=== PATIENT | female | born 1980 | race Caucasian/White ===

== ENCOUNTER 2018-04-28 15:46 | Inpatient (IN) | payer OTHER ==
[2018-04-28 16:20] VITALS: BMI 28.8
[2018-04-28] MEDS ORDERED: Lactated Ringer's 1,000 ML IV ONE (16:20)
[2018-04-28] MEDS ORDERED: Oxytocin 30 UNIT 30 UNITS/500 ML BAG IV ONE (16:22)
[2018-04-28] MEDS ORDERED: OXYTOCIN/0.9 % NS 20 UNIT/1,000 ML BAG IV SCH (16:30)
[2018-04-28] MEDS: Lactated Ringer's 1,000 ML IV SCH (17:35)
[2018-04-28 17:56] LABS: BASO # 0.1 K/uL (0.0-0.2); BASO % 0.9 % (0.0-2.0); EOS % 0.2 % (0.0-4.0); LYMPH # 1.6 K/uL (1.0-4.3); LYMPH % 17.2 % (20.0-40.0); MEAN CELL VOLUME 93.2 fl (81.0-99.0); MEAN CORPUSCULAR HGB CONC 33.3 g/dL (33.0-37.0); MEAN PLATELET VOLUME 10.6 fl (7.2-11.7); MONO % 11.1 % (0.0-10.0); NEUT # 6.5 K/uL (1.8-7.0); NEUT % 70.6 % (50.0-75.0); NRBC % 0.2 % (0.0-0.0); RBC 3.87 Mil/uL (3.80-5.20); RED CELL DISTRIBUTION WIDTH 14.9 % (11.5-14.5); WHITE BLOOD COUNT 9.2 K/uL (4.8-10.8)
--- NOTE | 2018-04-29 03:24 | OBHP ---
Datetime: 04/28/2018 22:43 IP Adm Impression: Term, intrauterine ; No Active Labor IP Admit Plan: Admit to unit Admit Comment, IP Provider: HPI: Theodore is a 37 year old at 40.2 sent to L_D by Dr. Lopez for IOL secondary to AMA. Denies any current contractions, LOF or vaginal bleeding. ROS: as above, otherwise negative History G1: SAB G2: current PMH Denies PSH Denies Medications PNV Allergies NKDA OBJECTIVE See exam labs: B+, Hep B neg, HIV/RPR neg, Rubella nonimmune, GBS neg Assessment/Plan: Admit to L_D for IOL - Will place a cervidil per Dr. Lopez's recommendation Sharlene Mccullough MD OB Fellow The patient was seen with the fellow I agree with the note Abdomen - PN: Normal Lungs - PN: Normal Heart - PN: Normal Thyroid - PN: Normal HEENT - PN: Normal General - PN: Normal FHR - Baseline A Provider: 140 Membranes, Provider: Intact Contraction Comments Provider: Sporadic Gestation - Est Wks by US: 40.2 Vital Signs Provider: Reviewed; Within Normal Limits NICHD Variability Prov Fetus A: Moderate 6-25bpm NICHD Accel Fetus A IP Provider: 15X15 FHR Category Provider Fetus A: Category I NICHD Decel Fetus A IP Provider: None Dilatation, Provider: 2 Effacement, Provider: 20 Station, Provider: -3
[2018-04-29] MEDS ORDERED: Fentanyl/Bupivacaine HCl 250 ML EPI ONE (04:16)
[2018-04-29] MEDS ORDERED: Oxytocin 30 UNIT 30 UNITS/500 ML BAG IV ONE (09:07)
[2018-04-29] MEDS: Lactated Ringer's 1,000 ML IV SCH (09:38)
[2018-04-29] MEDS ORDERED: Lidocaine 1% Inj (20ml) ONE (11:56)
[2018-04-29] MEDS ORDERED: OXYTOCIN/0.9 % NS 20 UNIT/1,000 ML BAG IV ONE (11:56)
--- NOTE | 2018-04-29 12:14 | OBPN ---
Datetime: 04/29/2018 12:09 IP Procedures: Artificial ROM; Sterile Vag Exam IP Progress Plan: Continue present management; Augmentation Contraction Comments Provider: q2-3min FHR - Baseline A Provider: 130s-140s IP Progress Note Comment: Pt without complaints AROM clear fluid FHT category I Discussed plan with patient and all patient questions answered. Vital Signs Provider: Reviewed; Within Normal Limits NICHD Accel Fetus A IP Provider: 15X15 FHR Category Provider Fetus A: Category I NICHD Variability Prov Fetus A: Moderate 6-25bpm Dilatation, Provider: 2 Effacement, Provider: 90 Station, Provider: -1 NICHD Decel Fetus A IP Provider: None Datetime: 04/28/2018 22:43 Membranes, Provider: Intact Gestation - Est Wks by US: 40.2
--- NOTE | 2018-04-29 18:14 | OBADHP ---
Datetime: 04/29/2018 12:09 FHR - Baseline A Provider: 130s-140s Contraction Comments Provider: q2-3min Vital Signs Provider: Reviewed; Within Normal Limits NICHD Variability Prov Fetus A: Moderate 6-25bpm NICHD Accel Fetus A IP Provider: 15X15 FHR Category Provider Fetus A: Category I NICHD Decel Fetus A IP Provider: None Dilatation, Provider: 2 Effacement, Provider: 90 Station, Provider: -1 Datetime: 04/28/2018 22:43 Admit Comment, IP Provider: HPI: Theodore is a 37 year old at 40.2 c/o of decreaed femal movmen x 2 day and advised go to LD.x Denies any current contractions, LOF or vaginal bleeding. ROS: as above, otherwise negative History G1: SAB G2: current PMH Denies PSH Denies Medications PNV Allergies NKDA OBJECTIVE See exam labs: B+, Hep B neg, HIV/RPR neg, Rubella nonimmune, GBS neg Assessment/Plan: Admit to L_D for IOL AMA post edc - Will place a cervidil per Dr. Lopez's recommendation Sharlene Mccullough MD OB Fellow The patient was seen with the fellow I agree with the note agree with above Yosi Lopez MD Abdomen - PN: Normal Lungs - PN: Normal Heart - PN: Normal Thyroid - PN: Normal HEENT - PN: Normal General - PN: Normal Membranes, Provider: Intact Gestation - Est Wks by US: 40.2 IP Hx Assessment: The History has been Reviewed and is Current IP Chief Complaint: Decreased movement EGA AdmitDate IP: 40.2 IP Adm Impression: Term, intrauterine ; No Active Labor IP Admit Plan: Admit to unit
--- NOTE | 2018-04-29 18:26 | OBPN ---
Datetime: 04/29/2018 18:23 IP Progress Note Comment: pt seen adn examiend fo rpregoressiojn of laobr s/p epdural VSS VE: /-1 VTX AROM, celar EFM: Cat I TOCO: q 2-5 in A/P @ 40.3 wks GA in labor iupc pitocn as per protocl cont current magnetn
[2018-04-29] MEDS ORDERED: ceFAZolin 2 GM in Sodium Chloride 0.9% 100 ML IVPB ONE (18:40)
[2018-04-29] MEDS ORDERED: Bicitra 30 ML UD PO ONE (18:41)
[2018-04-29] MEDS ORDERED: ceFAZolin IV 2 gm in Dextrose 2 GM/50 ML BAG IVPB ONE (19:09)
[2018-04-29] MEDS ORDERED: ePHEDrine 50 mg/ml Inj ONE (20:01)
[2018-04-29] MEDS ORDERED: Morphine 1 mg/ml preservative-free Inj(Duramorph) ONE (20:01)
[2018-04-29] MEDS ORDERED: Lidocaine 2% PF (10 ml) Amp ONE (20:02)
[2018-04-29] MEDS ORDERED: Oxytocin 10 Units/ml Inj ONE (20:58)
[2018-04-29] MEDS ORDERED: Oxycodone/Acetaminophen 5/325 mg Tab PO PRN ×2 (21:20)
[2018-04-29] MEDS ORDERED: DiphenhydrAMINE 50 mg/ml Inj IVP PRN (21:27)
--- NOTE | 2018-04-29 21:30 | OBDS ---
DELIVERY PERSONNEL Scrub Nurse: Sonia Wise OBT Vocational Nurse Lvn: Erik Feliciano RN Anesthesiologist: Jacqui Echavarria MD MATERNAL INFORMATION Delivery Anesthesia: Epidural Provider Comments: pltcs girl agpar 9,9 weight of 8bls 2 ounces ebl 800ml peidaitrn presnet for deliveyr no cmpiacioatn LABOR SUMMARY EDC: 04/26/2018 00:00 No. Babies in Womb: 1 LABOR INFORMATION Cervical Ripening Agents: Cytotec @ (Annotations: 25mcg) Group B Beta Strep: Negative
[2018-04-29] MEDS ORDERED: Simethicone 80 mg Chewtab PO SCH (22:00)
[2018-04-30] MEDS ORDERED: Oxycodone/Acetaminophen 5/325 mg Tab PO PRN ×4 (01:00→07:26)
[2018-04-30] MEDS ORDERED: DiphenhydrAMINE 50 mg/ml Inj IVP PRN (01:00)
[2018-04-30] MEDS ORDERED: Simethicone 80 mg Chewtab PO SCH (04:00)
--- NOTE | 2018-04-30 05:51 | OP ---
PROCEDURE DATE: 04/29/2018 SURGEON: Nicole Lopez MD WOODYARD CRANE OPERATOR: Casper Matute MD PREOPERATIVE DIAGNOSES: Term intrauterine , failed induction of labor. POSTOPERATIVE DIAGNOSES: Term intrauterine , failed induction of labor. PROCEDURE PERFORMED: Primary low-transverse section. OPERATIVE FINDINGS: Live female infant, cephalic presentation, Apgars 9 and 9. Normal-appearing uterus, tubes, and ovaries. Weight of 8 pounds 2 ounces. Patient Day Coordinator present at delivery. Dr. Casper Matute was present for the entire case and was essential in gaining entry, retraction, exposure, holding the bladder blade, helping to deliver the infant, and closing all layers. ESTIMATED BLOOD LOSS: 800 mL. ANESTHESIA: Combined epidural and spinal. COMPLICATIONS; None. INDICATIONS: The patient's risks, benefits, alternatives, and indications of primary low-transverse section were discussed with the patient, and the patient agreed. DESCRIPTION OF PROCEDURE: The patient was taken to the operating room where she was given anesthesia. Once it was found to be adequate, she was positioned on the operating table in the dorsal lithotomy position with the leg supported using stirrups. The patient was prepped and draped in the usual sterile fashion. Time-out was performed, confirmed correct patient and correct procedure. The patient was given preoperative prophylactic antibiotics. A Pfannenstiel skin incision was made with the scalpel and carried down to the underlying layer of the fascia. The fascia was incised in the midline, and the incision was extended laterally with Bovie. The inferior aspect of the fascial incision was grasped, elevated with Jamie clamps, and underlying rectus muscles were dissected off bluntly. Attention was then turned to the superior aspect, which in a similar fashion was grasped, elevated with Jamie clamps, and underlying rectus muscles were resected off bluntly. The rectus muscle was then bluntly in the midline. The peritoneum was identified and entered into clear space. The incision was extended laterally and superiorly until there was good visualization of the bladder. The lower end of the [place] was then inserted. Thus, the peritoneum was incised with the Metzenbaum scissors. The bladder flap was created digitally, and the lower end of the Danyell was then reinserted. The lower uterine segment was incised in a transverse fashion. The surgeon's hand entered the uterine cavity, and the 's head was delivered atraumatically followed by delivery of shoulders, followed by delivery of body. Both oral and nasal passages of the baby were bulb suctioned. The umbilical cord was clamped and cut. Baby was handed off to the awaiting envelope sealer operator. Cord blood and cord gases were collected and sent x2. The placenta was then delivered. The uterus was then cleared of all clots and debris. The uterine incision site was repaired with 0 Vicryl in a running continuous locked fashion. The second layer of the same suture was used to close the uterus in a running imbricating manner. The uterus was then returned to the abdomen. There was good hemostasis at the uterine incision. The paracolic gutters were cleared off all clots and debris. The peritoneum was reapproximated with a 2-0 chromic in a continuous fashion. The rectus was reapproximated and closed with 2-0 chromic in an interrupted manner. The fascia was reapproximated and closed with 0 Vicryl in a running continuous fashion. Subcutaneous space was closed with 2-0 plain in an interrupted manner. The skin was reapproximated and closed with 4-0 Monocryl in a running subcuticular fashion. At the end of the procedure, all needle, sponge and instrument counts were noted to be correct x2. The patient tolerated the procedure well and was transferred to recovery room in stable condition. Nicole Lopez MD
[2018-04-30 07:12] LABS: HEMOGLOBIN 10.9 g/dL (12.0-16.0); MEAN CORPUSCULAR HEMOGLOBIN 30.8 pg (27.0-31.0); MEAN CORPUSCULAR HGB CONC 32.8 g/dL (33.0-37.0); RBC 3.54 Mil/uL (3.80-5.20); RED CELL DISTRIBUTION WIDTH 14.7 % (11.5-14.5); WHITE BLOOD COUNT 12.5 K/uL (4.8-10.8)
[2018-04-30] MEDS ORDERED: Multivitamin With Minerals Tab PO SCH ×2 (09:00)
[2018-04-30] MEDS: Multivitamin With Minerals Tab PO SCH (09:16)
[2018-04-30] MEDS: Simethicone 80 mg Chewtab PO SCH ×3 (17:27→22:38)
[2018-05-01] MEDS: Simethicone 80 mg Chewtab PO SCH ×4 (03:47→21:11)
[2018-05-01] MEDS: Multivitamin With Minerals Tab PO SCH (09:07)
--- NOTE | 2018-05-01 10:23 | OBPPN ---
Datetime: 05/01/2018 09:41 PP Pain Prov: Within normal limits PP Pain Prov comment: Controlled with Ibuprofen PP Nausea Prov: Denies PP Flatus Prov: Yes PP BM Prov: No PP Breasts Prov: Not Done PP Heart Prov: Normal PP Lungs Prov: Normal PP Abdomen/Uterus Prov: Normal PP Lochia Prov: Normal PP Vulva/Perineum Prov: Not Done PP CVA Tenderness Prov: Not Done PP Extremities Prov: Normal PP C/S Incision Prov: Normal PP Progress Prov: Normal PP Plan Prov: Continue present management PP Progress Note Prov: Pt is a 37 y/o , POD #2 s/p at 40.2wks. Pt was seen and exam ined at bedside this AM. She had no complaints overnight. Pelvic pain is controlled with Ibuprofen, p atient states she doesn't want Percocet. Pt is tolerating PO regular diet w/o complaints. She is ambu lating as tolerated. B _ B feeding. Lochia is similar to menses volume. Voiding w/o difficulty, no fo luis. +Flatus _ -BM. She denies f/c/n/v/CP/SOB, Lightheadedness or Dizziness O: BP: 115/71 T: 97.8F, HR:78 PE: GEN: Sitting in chair comfortably, NAD CVS: S1, S2, RRR LUNGS: CTA B/L ABD: +BS, soft with appropriate tenderness, fundus @ umbilical level; Dress c/d/i will be removed today EXT: No edema noted NEURO: AAOx3 A/P: 37 y/o , POD #2 s/p at 40.2wks. -Continue regular diet as tolerated. -Encouraged ambulation as tolerated. -Encouraged . -Continue Ibuprofen 600mg Q6h PRN for pain management. -Pt considering IUD -[facility] Case discussed with attending. -Dr. Lexis Burrows PGY-1 OB Attending/hospitalist : Pt seen on rounds. Agree with note MAHNDO IP PP Procedures: None Vital Signs Provider PP: Reviewed; Within Normal Limits
[2018-05-01 17:12] VITALS: TEMP 98.2
[2018-05-02] MEDS: Simethicone 80 mg Chewtab PO SCH ×2 (03:22→09:03)
[2018-05-02] MEDS: Multivitamin With Minerals Tab PO SCH (09:03)
--- NOTE | 2018-05-02 17:15 | OBPPN ---
Datetime: 05/02/2018 10:40 PP Pain Prov: Within normal limits PP Nausea Prov: Denies PP Flatus Prov: Yes PP BM Prov: Yes PP Breasts Prov: Normal PP Heart Prov: Normal PP Lungs Prov: Normal PP Abdomen/Uterus Prov: Normal PP Lochia Prov: Not Done PP Vulva/Perineum Prov: Not Done PP CVA Tenderness Prov: Normal PP Extremities Prov: Normal PP C/S Incision Prov: Normal PP Progress Prov: Not Applicable PP Impression Prov: Normal progression PP Plan Prov: Continue present management PP Progress Note Prov: Pt is a 37 y/o , POD #3 s/p at 40.2wks. Pt was seen and exam ined at bedside this AM. Denies any complaints events. Pelvic pain is controlled with Ibuprofen, cookie ent states she doesn't want Percocet. Pt is tolerating PO regular diet w/o complaints. She is ambulat ing as tolerated. B _ B feeding. Lochia is similar to menses volume. Voiding w/o difficulty, no barragan . +Flatus _ +BM. She denies f/c/n/v/CP/SOB, Lightheadedness or Dizziness O: BP: 101/57 T: 98.2F, HR:60 PE: GEN: Sitting in chair comfortably, NAD CVS: S1, S2, RRR LUNGS: CTA B/L ABD: +BS, soft with appropriate tenderness, fundus @ umbilical level; Dress c/d/i will be removed today EXT: No edema noted NEURO: AAOx3 A/P: 37 y/o , POD #3 s/p at 40.2wks. -Continue regular diet as tolerated. -Encouraged ambulation as tolerated. -Encouraged . -Continue Ibuprofen 600mg Q6h PRN for pain management. -Follow up with Dr. Nicole Lopez at [facility] in 1wk for wound check Case discussed with attending. Dr. Jose Lopez, PGY1 Vital Signs Provider PP: Reviewed; Within Normal Limits
--- NOTE | 2018-05-02 17:15 | OBDCSUM ---
Datetime: 05/02/2018 10:43 Discharged to, Provider: Home Follow up at, Provider: Dr. Lopez Disch Instr Activity: Normal activity; May Shower Disch Instr Diet: Regular Discharge Instructions, Provider: Routine instructions given Discharge Diagnosis, Provider: Term Delivered Discharge Time: 05/02/2018 14:10 (Annotations: Data stored by [facility] on behalf of user) Follow up in weeks, Provider: 1 Week Disch Referrals: None Contraception discussed, Prov: Yes Disch Activity Restrictions: No exercising; No lifting; No sexual activity; Nothing in vagina - Inte rcourse, tampons, douche Discharge Comment, Provider: DISCHARGE 27 yo s/p PLTCS on 04/29/2018. EGA: 40.2 weeks Diagnosis: Primary L_D summary: PTLCS DOD: 04/29 @ 20:54 Sex: Female Weight: 3680 gm : 9 summary: No complications during , Lochia is similar volume to menses. CBC : 10.9/33.3 DISCHARGE DATA D/C DATE: 05/02/2018 DISCHARGE INSTRUCTIONS: -Encouraged -PNV 1 tab po q/day -Ibuprofen 600 mg 1 tab po q4-6h PRN mild pain #20 - Percocet 5-325 mg Q 4hr prn for moderate to severe pain -Ambulate with caution, nothing per vagina/sex for 4 weeks, no heavy lifting, avoid stairs, if exc essive bleeding or fever without relief from Ibuprofen go to ED F/U with Dr. Lopez in 1 week for wound check. Case discussed with attending Dr. Jose Lopez, PGY1
[2018-05-02 18:16] VITALS: BP 101/57; PULSE 60; RESP 19; O2SAT 98
== END 2018-05-02 14:10 | disposition home or self-care (01) | DRG 788 ==
LOC: H.L&D 16:20 → H.OB/GYN 04-30 00:30
PROVIDERS: ADMIT Obstetrics & Gynecology; ATTEND Obstetrics & Gynecology
PROC: 4A1HXCZ Monitoring of Products of Conception, Cardiac Rate, External Approach (ICD-10-PCS; 2018-04-28)
PROC: 10D00Z1 Extraction of Products of Conception, Low, Open Approach (ICD-10-PCS; principal; 2018-04-29)
DX: O63.0 Prolonged first stage (of labor) (principal); O61.9 Failed induction of labor, unspecified; O36.8130 Decreased fetal movements, third trimester, not applicable or unspecified; Z37.0 Single live birth; Z3A.40 40 weeks gestation of pregnancy